=== PATIENT | female | born 1955 | race Asian ===

== ENCOUNTER 2018-02-04 12:10 | Emergency (ER) | payer SELFPAY ==
[~2018-02-04] VITALS: Ht 167.6 cm; Wt 90.7 kg
[2018-02-04 12:27] VITALS: BP 165/86
--- NOTE | 2018-02-04 13:07 | Emergency Room Report ---
History of Present Illness General Chief Complaint: Upper Extremity Injury Source: Patient Present Illness Allergies: Coded Allergies: No Known Allergies (Unverified , 02/04/18) Nursing Documentation-[facility] Past Medical History: No History, Except For Hx Hypertension: Yes Hx Diabetes: Yes Physical Exam Vital Signs Date Time Temp Pulse Resp B/P (MAP) Pulse Ox O2 Delivery O2 Flow Rate FiO2 02/04/18 12:27 97.9 74 20 165/86 98 Room Air 97.9 Medical Decision Making ER Course patient told RN she wanted an MRI, left ER Was not seen or evaluated by MD. Last Vital Signs Date Time Temp Pulse Resp B/P (MAP) Pulse Ox O2 Delivery O2 Flow Rate FiO2 02/04/18 13:03 97.9 74 20 165/86 98 Room Air Disposition: JEWELS CAMERON M.D. Feb 04, 2018 13:07
== END 2018-02-04 13:30 | disposition left against medical advice (07) ==
LOC: EMR 13:06
DX: M79.603 Pain in arm, unspecified (principal); Z53.21 Procedure and treatment not carried out due to patient leaving prior to being seen by health care provider; I10 Essential (primary) hypertension; E11.9 Type 2 diabetes mellitus without complications
CPT/HCPCS: 99281